=== PATIENT | male | born 1985 | race Caucasian/White ===

== ENCOUNTER 2017-08-18 11:27 | Emergency (ER) | payer OTHER ==
[2017-08-18] MEDS ORDERED: levETIRAcetam IV* 1,000 MG in NS 0.9% 100 ML* 100 ML IVPB ONE (12:02)
[2017-08-18 12:04] LABS: ABS Basophils 0 10^3/ul (0-0.2); ABS Eosinophils 0.4 10^3/ul (0-0.6); ABS Lymphocytes 2.2 10^3/ul (1.0-4.8); ABS Monocytes 0.5 10^3/ul (0-0.8); ABS Neutrophils 6.2 10^3/ul (1.5-7.7); ABS Nucleated RBC 0 10^3/ul; Eosinophil % 4.2 % (0-6); Hematocrit 47 % (42-52); Hemoglobin 16.2 g/dl (14.0-18.0); Lymphocyte % 23.9 % (25-47); Mean Corpuscular HGB Conc 35 g/dl (31-36); Mean Corpuscular Hemoglobin 30 pg (27-31); Mean Corpuscular Volume 87 fL (80-94); Mean Platelet Volume 9 um3 (7.4-10.4); Nucleated Red Blood Cells % 0; Platelet Count 206 10^3/ul (150-450); Red Blood Count 5.41 10^6/ul (4.0-5.4); Red Cell Distribution Width 14 % (10.5-15); White Blood Count 9.4 10^3/ul (3.5-10.8)
[2017-08-18 12:22] LABS: INR 1.03 (0.77-1.02)
[2017-08-18 12:23] LABS: EGFR Non-African American 90.4 (>60)
[2017-08-18] MEDS ORDERED: Magnesium Oxide TAB* 400 MG PO ONE (13:30)
[2017-08-18] MEDS ORDERED: NS 0.9% 1000 ML* 1,000 ML IV ONE (13:30)
[2017-08-18 13:37] LABS: Urine Appearance Clear; Urine Blood Negative (Negative); Urine Color Yellow; Urine Ketones Trace (Negative); Urine Protein 1+(30 mg/dL) (Negative); Urine Specific Gravity 1.025 (1.010-1.030); Urine Urobilinogen Negative (Negative)
[2017-08-18] MEDS ORDERED: levETIRAcetam TAB* 500 MG PO ONE (13:59)
[2017-08-18 14:04] VITALS: BP 115/78
--- NOTE | 2017-08-30 12:07 | ED ---
Rosanne Stewart Gabriel, scribed for Brandon Armendariz MD on 08/18/17 at 1148 . 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 Patient reports fatigue. Patient denies pain, hitting his head, and MENDOSA. Patient states he could feel it coming and went to lie down in the hallway. Patient has been under increased stress, is sleeping less, and hasn't been able to get his medication due to insurance issues. Seizure was witnessed and lasted 5 min per EMS. Pt Denies recent illness. Hx of seizures with the last one being 2 months ago. - History of Current Complaint Chief Complaint: EDSeizure Stated Complaint: SEIZURE Hx Obtained From: Patient, EMS Onset/Duration: Started hours ago, Resolved Timing: Intermittent Episodes Lasting: - 5 min Onset Severity: Mild Current Severity: None Seizure Severity: Mild Pain Intensity: 0 Pain Scale Used: 0-10 Numeric Syncope Context: Witnessed Associated Signs and Symptoms: Positive: Negative - pain, hitting his head, and MENDOSA - Allergy/Home Medications Allergies/Adverse Reactions: Allergies Allergy/AdvReac Type Severity Reaction Status Date / Time No Known Allergies Allergy Verified 12/08/15 21:48 PMH/Surg Hx/FS Hx/Imm Hx Respiratory History: Denies: Hx Chronic Obstructive Pulmonary Disease (COPD) History: Denies: Hx Acute Renal Failure EENT History: Denies: Hx Deafness Neurological History: Reports: Hx Seizures Infectious Disease History: No Infectious Disease History: Denies: Traveled Outside the [place] in Last 30 Days - Family History Known Family History: Negative: Respiratory Disease, Blood Disorder - Social History Occupation: Employed Full-time Alcohol Use: Rare Substance Use Type: Reports: None Smoking Status (MU): Current Every Day Smoker Review of Systems Constitutional: Negative - head trauma Positive: Fatigue. Negative: Fever, Chills Negative: Erythema Negative: Sore Throat Negative: Chest Pain Negative: Shortness Of Breath, Cough Negative: Abdominal Pain, Vomiting, Nausea Negative: dysuria, hematuria Negative: Edema Negative: Rash Neurological: Negative - dizziness Negative: Headache All Other Systems Reviewed And Are Negative: Yes Physical Exam - Summary Physical Exam Summary: Constitutional: Well-developed, Well-nourished, Alert. (-) Distressed Skin: Warm, Dry HENT: Normocephalic; Atraumatic Eyes: Conjunctiva normal Neck: Musculoskeletal ROM normal neck. (-) JVD, (-) Stridor, (-) Tracheal deviation Cardio: Rhythm regular, rate normal, Heart sounds normal; Intact distal pulses; The pedal pulses are 2+ and symmetric. Radial pulses are 2+ and symmetric. (-) Murmur Pulmonary/Chest wall: Effort normal. (-) Respiratory distress, (-) Wheezes, (-) Rales Abd: Soft. (-) Tenderness, (-) Distension, (-) Guarding, (-) Rebound Musculoskeletal: (-) Edema Lymph: (-) Cervical adenopathy Neuro: Alert, Oriented x3, Strength normal, Cranial nerves II-XII are grossly intact. (-) Dysmetria, (-) Nystagmus, (-) Ataxia by finger to nose testing, (-) Sensory deficit. Psych: Mood and affect Normal GCS: 15 Triage Information Reviewed: Yes Vital Signs On Initial Exam: Initial Vitals Temp Pulse Resp BP Pulse Ox 98.8 F 85 18 120/65 90 08/18/17 11:33 08/18/17 11:33 08/18/17 11:33 08/18/17 11:33 08/18/17 11:33 Vital Signs Reviewed: Yes Diagnostics - Vital Signs Vital Signs Temp Pulse Resp BP Pulse Ox 08/18/17 11:33 98.8 F 85 18 120/65 90 - Laboratory Result Diagrams: 08/18/17 11:52 08/18/17 11:52 Lab Statement: Any lab studies that have been ordered have been reviewed, and results considered in the medical decision making process. 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 Patient reports fatigue. Patient denies pain, hitting his head, and MENDOSA. Patient states he could feel it coming and went to lie down in the hallway. Patient has been under increased stress, is sleeping less, and hasnt been able to get his medication due to insurance issues. Seizure was witnessed and lasted 5 min per EMS. Denies recent illness. Hx of seizures with the last one being 2 months ago. An EKG reveals NSR. Test results with no significant abnormalities. UA/bloodwork obtained. In the ED course the patient was given Magox, Keppra, and IV fluids. Dx of medication noncompliance, insomnia, stress, breakthrough seizure. Patient will be discharged with prescription for keppra and follow up from PCP. The patient is agreeable with this plan. - Diagnoses Provider Diagnoses: Breakthrough seizure, Non compliance w medication regimen, Insomnia, Stress Discharge - Discharge Plan Condition: Stable Disposition: HOME Prescriptions: levETIRAcetam TAB* [Keppra TAB*] 500 mg PO BID #60 tab Patient Education Materials: Levetiracetam (By mouth), Epilepsy (ED) Referrals: No Primary Care Phys,NOPCP [Primary Care Provider] - Additional Instructions: Please follow up with your primary care provider in 2-3 days. RETURN TO EMERGENCY DEPARTMENT FOR ANY NEW OR WORSENING SYMPTOMS The documentation as recorded by the Rosanne travis Gabriel accurately reflects the service I personally performed and the decisions made by me, Brandon Armendariz MD.
== END 2017-08-18 14:04 | disposition home or self-care (01) ==
LOC: ED 11:27
DX: R56.9 Unspecified convulsions (principal); G47.00 Insomnia, unspecified; F43.9 Reaction to severe stress, unspecified; R53.83 Other fatigue; F17.210 Nicotine dependence, cigarettes, uncomplicated; Z91.14 Patient's other noncompliance with medication regimen
CPT/HCPCS: 36415; 80053; 80177; 81003; 81015; 83605; 83735; 85025; 85610; 87086; 93005; 96365; 99283; A9270-GY

== ENCOUNTER 2017-09-02 11:36 | Emergency (ER) | payer SELFPAY ==
[2017-09-02 13:24] LABS: ABS Basophils 0.1 10^3/ul (0-0.2); ABS Eosinophils 0.5 10^3/ul (0-0.6); ABS Lymphocytes 2.7 10^3/ul (1.0-4.8); ABS Monocytes 0.6 10^3/ul (0-0.8); ABS Neutrophils 6.3 10^3/ul (1.5-7.7); ABS Nucleated RBC 0 10^3/ul; Eosinophil % 5.1 % (0-6); Hematocrit 46 % (42-52); Hemoglobin 16.2 g/dl (14.0-18.0); Lymphocyte % 26.3 % (25-47); Mean Corpuscular HGB Conc 35 g/dl (31-36); Mean Corpuscular Hemoglobin 30 pg (27-31); Mean Corpuscular Volume 87 fL (80-94); Mean Platelet Volume 8 um3 (7.4-10.4); Nucleated Red Blood Cells % 0; Platelet Count 227 10^3/ul (150-450); Red Blood Count 5.33 10^6/ul (4.0-5.4); Red Cell Distribution Width 13 % (10.5-15); White Blood Count 10.3 10^3/ul (3.5-10.8)
[2017-09-02 13:37] LABS: EGFR Non-African American 89.4 (>60)
[2017-09-02] MEDS ORDERED: Tenofovir/Emtricitabine(*) TAB PO ONE (15:12)
--- NOTE | 2017-09-02 15:12 | ED ---
- HPI Summary HPI Summary: 31 male presents to ED with complaints of needle-stick to left index finger that occurred just [employer] while at work. Patient states he was picking up trash ( works at [employer]) when he picked up a paper-towel. Patient states the needle was stuck in his left index finger that he had to remove. State needle was similar looking to "IV and shot(injection) needles". He immediately washed the area with soap and water. Did draw blood. No other complaints at this time. No PMHx. Needle is anonymous. Was not wearing gloves. 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 work Needlestick: Other - unknown likely hollow Blood on Needle: No - unknown was not able to see it prior to stick Depth of Needlestick: Puncture Depth: superficial Bleeding at Site: Yes Body Fluid Exposure: Blood - unknown Treatment [employer]: Cleaned Wound - Source Information HIV: Unknown Hepatitis: Unknown - Other Discussed Post-Exposure prophylaxis (PEP) for HIV: Accepted Discussed PEP for Hepatitis-B: Accepted Serologic Testing (HIV/HBV) Declined by Patient: Yes PMH/Surg Hx/FS Hx/Imm Hx Endocrine/Hematology History: Denies: Hx Diabetes Cardiovascular History: Denies: Hx Hypotension, Hx Hypertension Respiratory History: Denies: Hx Asthma, Hx Chronic Obstructive Pulmonary Disease (COPD) History: Denies: Hx Acute Renal Failure Sensory History: Denies: Hx Deafness Neurological History: Reports: Hx Seizures - Surgical History Surgery Procedure, Year, and Place: n/a - Immunization History Date of Tetanus Vaccine: 2016 Immunizations Up to Date: Yes Infectious Disease History: No Infectious Disease History: Denies: Hx Hepatitis, Hx Human Immunodeficiency Virus (HIV), Traveled Outside the [place] in Last 30 Days - Family History Known Family History: Negative: Respiratory Disease, Blood Disorder - Social History Alcohol Use: None Substance Use Type: Reports: None Smoking Status (MU): Heavy Every Day Tobacco Smoker Review of Systems Constitutional: Negative Cardiovascular: Negative Respiratory: Negative Positive: Other - needlestick All Other Systems Reviewed And Are Negative: Yes Physical Exam Triage Information Reviewed: Yes Vital Signs On Initial Exam: Initial Vitals Temp Pulse Resp BP Pulse Ox 97.1 F 79 18 155/82 97 09/02/17 11:38 09/02/17 11:38 09/02/17 11:38 09/02/17 11:38 09/02/17 11:38 Vital Signs Reviewed: Yes Appearance: Positive: Well-Appearing - anxious, No Pain Distress, Well-Nourished Skin: Positive: Warm, Skin Color Reflects Adequate Perfusion, Dry, Other - needlestick left index finger pad, no active bleeding, small bruise noted, no open wounds currently. Negative: Cold, Numb, Cyanosis @, Pale, Erythema @ Head/Face: Positive: Normal Head/Face Inspection Eyes: Positive: Conjunctiva Clear Respiratory/Lung Sounds: Positive: Clear to Auscultation, Breath Sounds Present. Negative: Rales, Rhonchi, Wheezes Cardiovascular: Positive: Normal, RRR, Pulses are Symmetrical in both Upper and Lower Extremities. Negative: Murmur, Rub Neurological: Positive: Normal, Sensory/Motor Intact, Alert, Oriented to Person Place, Time, CN Intact II-III, Reflexes Intact Diagnostics - Vital Signs Vital Signs Temp Pulse Resp BP Pulse Ox 09/02/17 11:38 97.1 F 79 18 155/82 97 - Laboratory Lab Results: Lab Results 09/02/17 09/02/17 09/02/17 Range/Units 13:15 13:15 13:15 WBC 10.3 (3.5-10.8) 10^3/ul RBC 5.33 (4.0-5.4) 10^6/ul Hgb 16.2 (14.0-18.0) g/dl Hct 46 (42-52) % MCV 87 (80-94) fL MCH 30 (27-31) pg MCHC 35 (31-36) g/dl RDW 13 (10.5-15) % Plt Count 227 (150-450) 10^3/ul MPV 8 (7.4-10.4) um3 Neut % (Auto) 61.7 (38-83) % Lymph % (Auto) 26.3 (25-47) % Rains % (Auto) 6.1 (1-9) % Eos % (Auto) 5.1 (0-6) % Baso % (Auto) 0.8 (0-2) % Absolute Neuts (auto) 6.3 (1.5-7.7) 10^3/ul Absolute Lymphs (auto) 2.7 (1.0-4.8) 10^3/ul Absolute Monos (auto) 0.6 (0-0.8) 10^3/ul Absolute Eos (auto) 0.5 (0-0.6) 10^3/ul Absolute Basos (auto) 0.1 (0-0.2) 10^3/ul Absolute Nucleated RBC 0 10^3/ul Nucleated RBC % 0 Sodium 135 (133-145) mmol/L Potassium 4.1 (3.5-5.0) mmol/L Chloride 105 (101-111) mmol/L Carbon Dioxide 24 (22-32) mmol/L Anion Gap 6 (2-11) mmol/L BUN 18 (6-24) mg/dL Creatinine 0.99 (0.67-1.17) mg/dL Est GFR ( Amer) 114.9 (>60) Est GFR (Non-Af Amer) 89.4 (>60) BUN/Creatinine Ratio 18.2 (8-20) Glucose 102 H (70-100) mg/dL Calcium 9.4 (8.6-10.3) mg/dL Total Bilirubin 0.40 (0.2-1.0) mg/dL AST 17 (13-39) U/L ALT 25 (7-52) U/L Alkaline Phosphatase 31 L (34-104) U/L Total Protein 7.2 (6.4-8.9) g/dL Albumin 4.2 (3.2-5.2) g/dL Globulin 3.0 (2-4) g/dL Albumin/Globulin Ratio 1.4 (1-3) Hepatitis B Antibody Nonreactive (Nonreactive) Hep Bs Antigen Nonreactive (Nonreactive) Hep Bs Antibody, Quant < 3.10 (<12) mIU/mL Hepatitis C Antibody Pending HIV 1&2 Antibody Rapid Nonreactive (Nonreactive) Result Diagrams: 09/02/17 13:15 09/02/17 13:15 Lab Statement: Any lab studies that have been ordered have been reviewed, and results considered in the medical decision making process. Needlestick Course/Dx - Course Course Of Treatment: educated patient on HIV, hepatitis, PrEP and follow up. Basic labs obtained and unremarkable. No other complaints or concerns at this time. Although low risk exposure patient wanted to being prophylactic medication. Was educated on benefit versus risk and potential complications. Spoke with Dr Shane who clarified this is low risk however it is patient's decision will follow up with patient in his office. Patient's tetanus was UTD, back in 2016, 2 years ago. Patient decided to take PrEP. Given 7 days supply, follow up with Dr Shane this week who is aware. - Diagnoses Provider Diagnoses: Accidental needlestick injury with exposure to body fluid - Physician Notifications Discussed Care Of Patient With: Dr Barrios Time Discussed With Above Provider: 15:00 Instructed by Provider To: Have Pt Call For Appt. - given information that patient is low risk however it is patient's call Discharge - Discharge Plan Condition: Stable Disposition: HOME Patient Education Materials: Needle Stick Injuries (ED), Postexposure Prophylaxis (ED), Body Substance Exposure (ED) Referrals: Acosta STEWART,Xavi Lopez [Medical Doctor] - Nilda Whitehead MD [Primary Care Provider] - Additional Instructions: Please call and make an appointment with Dr Shane for further information and remaining prophylactic medication. Also for follow up blood work and recheck, side effects. Any new or worsening symptoms please seek medical attention. Follow up with PCP.
[2017-09-02] MEDS ORDERED: Raltegravir* 400 MG TAB PO ONE (15:14)
[2017-09-02 15:53] VITALS: BP 139/82
== END 2017-09-02 15:51 | disposition home or self-care (01) ==
LOC: ED 11:36
DX: S61.231A Puncture wound without foreign body of left index finger without damage to nail, initial encounter (principal); W46.0XXA Contact with hypodermic needle, initial encounter; Y93.89 Activity, other specified; Y92.511 Restaurant or cafe as the place of occurrence of the external cause
CPT/HCPCS: 36415; 80053; 85025; 86703; 86706; 86803; 87340; 99282